=== PATIENT | male | born 1945 | race Caucasian/White ===

== ENCOUNTER 2022-03-27 10:58 | Outpatient (CLI) | payer MEDICARE, SELFPAY ==
[2022-03-27 22:18] LABS: Albumin* 4.2 g/dL (3.3-5.0); Chloride* 108 mmol/L (96-114)
[2022-03-27 22:19] LABS: Potassium* 4.3 mmol/L (3.6-5.1); Sodium* 139 mmol/L (135-149)
[2022-03-27 22:21] LABS: Alkaline Phosphatase* 103 U/L (40-150); Aspartate Amino Transferase* 33 U/L (12-35); Bilirubin Total* 1.3 mg/dL (0.1-1.5); Blood Urea Nitrogen* 20 mg/dL (7-30); Carbon Dioxide* 27 mmol/L (20-32); Cholesterol* 221 mg/dL (90-199); Creatinine* 1.3 mg/dL (0.5-1.5); Estimated Glomerular Filt Rate 56 ml/min; Glucose* 95 mg/dL (60-115); Total Protein* 7.1 g/dL (6.0-8.3)
[2022-03-27 22:22] LABS: Alanine Aminotransferase* 30 U/L (4-50); Calcium* 9.2 mg/dL (8.4-10.6); HDL Cholesterol* 61 mg/dL (>=40); LDL Cholesterol Calculated 140 mg/dL (<100); Triglycerides* 99 mg/dL (40-149)
[2022-03-27 22:49] LABS: PSA Screen* 8.65 ng/mL (0.10-4.00)
== END 2022-03-27 10:59 | disposition home or self-care (01) ==
LOC: LKVREF 10:59
PROVIDERS: PCP Family Medicine; Visit Provider Family Medicine
DX: Z00.00 Encounter for general adult medical examination without abnormal findings (principal); E78.00 Pure hypercholesterolemia, unspecified; R97.20 Elevated prostate specific antigen [PSA]
CPT/HCPCS: 80053; 80061; 84153

== ENCOUNTER 2022-09-22 08:52 | Outpatient (CLI) | payer MEDICARE, SELFPAY | END 2022-09-22 08:53 | disposition home or self-care (01) | LOC: NFLDREF 09-23 07:58 | PROVIDERS: PCP Family Medicine; Referring Provider Family Medicine; Visit Provider Family Medicine | DX: E78.00 Pure hypercholesterolemia, unspecified (principal) | CPT/HCPCS: 80061; 80076 ==

== ENCOUNTER 2023-02-17 08:29 | Outpatient (CLI) | payer MEDICARE, SELFPAY | END 2023-02-17 08:30 | disposition home or self-care (01) | LOC: NFLDREF 02-18 11:26 | PROVIDERS: PCP Family Medicine; Referring Provider Family Medicine; Visit Provider Family Medicine | DX: C61 Malignant neoplasm of prostate (principal); R97.20 Elevated prostate specific antigen [PSA]; N40.1 Benign prostatic hyperplasia with lower urinary tract symptoms; R35.1 Nocturia | CPT/HCPCS: 84153 ==

== ENCOUNTER 2023-04-22 12:02 | Outpatient (CLI) | payer MEDICARE, SELFPAY | END 2023-04-22 12:03 | disposition home or self-care (01) | LOC: NFLDREF 04-29 10:29 | PROVIDERS: PCP Family Medicine; Referring Provider Family Medicine; Visit Provider Family Medicine | DX: E78.00 Pure hypercholesterolemia, unspecified (principal); R97.20 Elevated prostate specific antigen [PSA]; H61.20 Impacted cerumen, unspecified ear; C61 Malignant neoplasm of prostate; D22.9 Melanocytic nevi, unspecified; N40.0 Benign prostatic hyperplasia without lower urinary tract symptoms | CPT/HCPCS: 80053; 80061; 84153 ==

== ENCOUNTER 2024-06-01 09:27 | Outpatient (CLI) | payer MEDICARE, SELFPAY | END 2024-06-01 09:28 | disposition home or self-care (01) | LOC: NFLDREF 06-05 20:16 | PROVIDERS: PCP Family Medicine; Referring Provider Family Medicine; Visit Provider Family Medicine | DX: R97.20 Elevated prostate specific antigen [PSA] (principal) | CPT/HCPCS: G0103 ==

== ENCOUNTER 2024-07-13 08:58 | Outpatient (CLI) | payer MEDICARE, SELFPAY | END 2024-07-13 08:59 | disposition home or self-care (01) | LOC: NFLDREF 07-18 16:16 | PROVIDERS: PCP Family Medicine; Referring Provider Family Medicine; Visit Provider Family Medicine | DX: E78.00 Pure hypercholesterolemia, unspecified (principal) | CPT/HCPCS: 80053; 80061 ==

== ENCOUNTER 2024-09-26 10:01 | Outpatient (CLI) | payer MEDICARE, SELFPAY ==
--- NOTE | 2024-09-26 10:15 | CRLHL7_ITS ---
For Patients: As a result of the 21st Century Cures Act, medical imaging exams and procedure reports are released immediately into your electronic medical record. You may view this report before your referring provider. If you have questions, please contact your health care provider. INDICATION: Prostate cancer. TECHNIQUE: Multisequence multiplanar MRI of the lumbar spine prior to and following administration of 20 cc Dotarem gadolinium based intravenous contrast. COMPARISON: Correlated with lumbar spine radiographs dated 01/28/2021. FINDINGS: Grade 1 5 mm anterolisthesis of L4 on L5. Vertebral body heights are maintained. No suspicious T1 hypointense infiltrative lesion. Faint focus of ovoid enhancement questionably contiguous with the anterior right L3-L4 facet joint (series 8, images 9-10). Multilevel disc height loss and Modic type 1/2 degenerative endplate signal. Circumscribed bilateral T2 hyperintense renal parenchymal lesions, not adequately characterized, but most typical for cysts. T12-L1: No significant spinal canal or neural foraminal stenosis. L1-L2: Symmetric disc bulge and posterior endplate osteophytic ridging. Moderate facet joint arthrosis. Severe spinal canal stenosis, mild right neural foraminal narrowing, and moderate left neural foraminal narrowing. L2-L3: Symmetric disc bulge and posterior endplate osteophytic ridging. Mild facet joint arthrosis. Mild spinal canal stenosis and bilateral neural foraminal narrowing. L3-L4: Symmetric disc bulge and posterior endplate osteophytic ridging. Moderate facet joint arthrosis. Severe spinal canal stenosis, moderate-severe right neural foraminal narrowing, and moderate left neural foraminal narrowing. L4-L5: Advanced facet joint arthrosis with anterolisthesis and disc bulge/uncovering. Mild-moderate spinal canal stenosis and mild right neural foraminal narrowing. No significant left neural foraminal narrowing. L5-S1: Posterior disc bulge and endplate osteophytic ridging eccentric to the right. No significant spinal canal or neural foraminal stenosis. IMPRESSION: 1. No suspicious T1 hypointense infiltrative lesion. 2. Ovoid 7 mm focus of enhancement within the right hemicanal at the L3 level (series 8, image 10). Findings are indeterminate, but favored to represent benign etiology such as facet joint synovial cyst. 3. At L1-L2, severe spinal canal stenosis and moderate left neural foraminal narrowing. 4. At L2-L3, mild spinal canal stenosis and bilateral neural foraminal narrowing. 5. At L3-L4, severe spinal canal stenosis, moderate-severe right neural foraminal narrowing, and moderate left neural foraminal narrowing. 6. At L4-L5, mild-moderate spinal canal stenosis and mild right neural foraminal narrowing. Dictated by Bladimir Arroyo MD @ 09/27/2024 10:46:32 AM (Electronically Signed)
== END 2024-09-26 10:02 | disposition home or self-care (01) ==
LOC: MRI 10:03
PROVIDERS: PCP Family Medicine; Visit Provider Family Medicine
DX: C61 Malignant neoplasm of prostate (principal); M54.9 Dorsalgia, unspecified; M71.38 Other bursal cyst, other site; M51.26 Other intervertebral disc displacement, lumbar region
CPT/HCPCS: 72158; A9575

== ENCOUNTER 2024-12-21 14:42 | Outpatient (CLI) | payer MEDICARE, SELFPAY ==
--- NOTE | 2024-12-21 15:00 | CRLHL7_ITS ---
For Patients: As a result of the Century Cures Act, medical imaging exams and procedure reports are released immediately into your electronic medical record. You may view this report before your referring provider. If you have questions, please contact your health care provider. XR DXA Bone Mineral Density (BMD) Reason for exam: Pre-surgery planning. Back and leg pain. Current height (in): 72. Weight (lb): 236. Menopause age: Not applicable. Ethnicity: White. Gender: Male. 1. Have you had a previous hip or vertebral fracture? No. 2. Have you had any fractures during your adult life which did not result from significant trauma (e.g., auto accident)? No. 3. Did either of your parents have a hip fracture? No. 4. Do you smoke? No. 5. Have you ever taken Glucocorticoids? No. 6. Do you have rheumatoid arthritis? No. 7. Do you have secondary osteoporosis? No. 8. Do you drink 3 or more alcoholic drinks per day? No. 9. Are you being treated for osteoporosis? No. 10. Have you ever taken any of the following medications: Actonel, Evista, Fosamax, Miacalcin, Reclast, Boniva, Forteo, HRT (i.e. estrogen/hormone therapy), Protelos, Prolia, Vitamin D, Calcium, other ??? please specify. ANSWER: No. 11. Do you have any of the following medical conditions: Anorexia or bulimia, asthma or emphysema, end stage renal disease, hyperparathyroidism, any seizure disorders, cancer, inflammatory bowel diseases, hysterectomy, other ??? please specify. ANSWER: No. 12. What was your maximum height (inches)? 72. 13. Do you perform weight bearing exercise regularly? No. 14. Do you regularly consume dairy products? Yes. 15. Do you drink caffeinated beverages? Yes. TECHNIQUE: Bone mineral density study was performed using the [employer]. FINDINGS: The results of the study expressed as bone mineral density (BMD) are as follows: Lumbar spine L1 to L4: BMD: 1.722 g/cm2. T-score: 5.7. Z-score: 6.9. Neck Left: BMD: 0.864 g/cm2. T-score: -0.5. Z-score: 1.1. Right: BMD: 1.004 g/cm2. T-score: 0.5. Z-score: 2.1. Total Left: BMD: 1.058 g/cm2. T-score: 0.2. Z-score: 1.3. Right: BMD: 1.140 g/cm2. T-score: 0.7. Z-score: 1.8. IMPRESSION: Normal bone density. Kiersten Calderón M.D. Diagnostic Radiologist [email or web address] TONY/kamran / bM/Dictated by: Kiersten Calderón MD @ 12/25/2024 7:24:00 AM (Electronically Signed)
== END 2024-12-21 14:43 | disposition home or self-care (01) ==
LOC: RAD 14:43
PROVIDERS: PCP Family Medicine; Visit Provider Specialist
DX: M81.0 Age-related osteoporosis without current pathological fracture (principal); M48.062 Spinal stenosis, lumbar region with neurogenic claudication; M43.16 Spondylolisthesis, lumbar region
CPT/HCPCS: 77080